=== PATIENT | female | born 1980 | race Caucasian/White ===

== ENCOUNTER 2017-09-18 10:15 | Inpatient (IN) | payer BC ==
[~2017-09-18] VITALS: Ht 157.5 cm; Wt 58.1 kg
[~2017-09-18 10:15] MED LIST: MULT1TAB73 PO
--- NOTE | 2017-09-18 10:15 | NUR ---
PT PRESENTED TO THE ER WITH A C/O ANXIETY, SHAKING WHILE AT [employer]. PT STATED THAT SHE DRANK COFFEE PRIOR TO WORKING OUT THIS AM. PT APPEARS TO BE DIZZY AND WEAK. PT IS ON THE MONITOR AND CONTINOUS PULSE OX.
--- NOTE | 2017-09-18 10:20 | NUR ---
PT STATED THAT SHE HAD A BABY APPROX 7 WEEKS AGO.
[2017-09-18] MEDS ORDERED: ACETAMINOPHEN ES 500 MG TABLET ONE (10:27)
[2017-09-18] MEDS ORDERED: ACETAMINOPHEN ES 500 MG TABLET PO ONE (10:30)
[2017-09-18 10:46] LABS: BASOPHILS % (AUTO) 0.6 % (0.0-2.0); EOSINOPHILS # (AUTO) 0.2 /CMM (0.0-0.7); EOSINOPHILS % (AUTO) 2.5 % (0.0-6.0); HEMATOCRIT 40 % (33-45); HEMOGLOBIN 12.9 g/dL (11.5-14.8); LYMPHOCYTES # (AUTO) 1.4 /CMM (0.8-4.8); LYMPHOCYTES % (AUTO) 20.6 % (20.0-44.0); MEAN CORPUSCULAR HEMOGLOBIN 26 PG (26.0-33.0); MEAN CORPUSCULAR HGB CONC 33 g/dl (31.0-36.0); MEAN CORPUSCULAR VOLUME 81 fL (82-100); MONOCYTES # (AUTO) 0.7 /CMM (0.1-1.30); MONOCYTES % (AUTO) 10.1 % (2.0-12.0); NEUTROPHILS # (AUTO) 4.6 /CMM (1.8-8.9); NEUTROPHILS % (AUTO) 66.2 % (43.0-81.0); PLATELET COUNT (AUTO) 334 /CMM (150-450); RDW COEFFICIENT OF VARIATION 13.3 (11.5-15.0); RED BLOOD CELL COUNT(AUTO) 4.92 MIL/uL (4.0-5.2); WHITE BLOOD COUNT (AUTO) 6.9 K/uL (4.3-11.0)
--- NOTE | 2017-09-18 10:49 | NUR ---
PT AMBULATED TO THE BATHROOM WITH ASSISTANCE. PT APPEARS WEAK AND DIZZY WHILE AMBULATING.
--- NOTE | 2017-09-18 10:51 | NUR ---
PT RETURNED TO BED #1. PT STATED THAT SHE FEEL THIRSTY, WEAK, AND DIZZY. PT WAS RECONNECTED TO THE MONITOR AND CONTINUOUS PULSE OX.
--- NOTE | 2017-09-18 10:52 | NUR ---
XRAY IN PROGRESS AT THE BEDSIDE.
--- NOTE | 2017-09-18 10:53 | NUR ---
PT REC'D A SM CUP OF WATER.
[2017-09-18 10:56] LABS: CALCIUM, SERUM 9.6 mg/dL (8.5-10.1); CARBON DIOXIDE 22 mmol/L (21-32); CHLORIDE 104 mmol/L (98-107); CREATININE 1.1 mg/dL (0.6-1.3); GLUCOSE 75 mg/dL (74-106); POTASSIUM 3.2 mmol/L (3.5-5.1); SODIUM SERUM 139 mmol/L (136-145); UREA NITROGEN, BLOOD 9 mg/dL (7-18)
[2017-09-18 10:59] LABS: PROTHROMBIN TIME 10.4 SECS (9.5-12.7)
[2017-09-18 11:02] LABS: ALANINE AMINOTRANSFERASE 21 U/L (12-78); ALBUMIN 4.6 g/dL (3.4-5.0); ALKALINE PHOSPHATASE 92 U/L (46-116); ASPARTATE AMINOTRANSFERASE 22 U/L (15-37); BILIRUBIN,DIRECT 0.1 mg/dL (0.0-0.2); TOTAL PROTEIN, SERUM 8.2 g/dL (6.4-8.2)
[2017-09-18 11:04] LABS: TROPONIN I < 0.017 ng/mL (0.00-0.056)
[2017-09-18] MEDS ORDERED: LORAZEPAM 1 MG TABLET ONE (11:07)
[2017-09-18 11:14] LABS: APPEARANCE,URINE Cloudy (CLEAR); BILIRUBIN,URINE Negative (NEGATIVE); BLOOD, URINE Negative Ery/uL (NEGATIVE); COLOR,URINE Yellow (YELLOW); KETONES,URINE 40 (NEGATIVE); LEUKOCYTE ESTERASE ,URINE Trace (NEGATIVE); NITRITE, URINE Negative (NEGATIVE); PH,URINE 6.5 (5.0-8.0); PROTEIN,URINE 100 mg/dl (NEGATIVE); UGLUCOSE Negative (NEGATIVE); UROBILINOGEN,URINE 0.2 EU/dL (0.2)
[2017-09-18] MEDS ORDERED: CEFTRIAXONE 1GM BAG (ER ONLY) 50 ML IV ONE ×2 (11:24→11:30)
--- NOTE | 2017-09-18 11:28 | NUR ---
DR.RUTHERFORD RUELAS FOR ADMISSION
--- NOTE | 2017-09-18 11:28 | NUR ---
CALLED NURSING SUP. FOR TELE BED
[2017-09-18 11:30] LABS: BACTERIA,URINE 2+ /HPF (None Seen); RBC,URINE NONE SEEN /HPF (0-2); SQUAMOUS EPITHELIAL CELL,UR Many /HPF (None Seen); YEAST,URINE None Seen /HPF (None Seen)
[2017-09-18] MEDS ORDERED: IV NS 0.9% 1,000 ML BAG IV ONE (11:30)
[2017-09-18] MEDS ORDERED: LORAZEPAM 0.5 MG TABLET PO ONE (11:30)
[2017-09-18 11:31] LABS: HYALINE CASTS, URINE Many /LPF (None Seen)
--- NOTE | 2017-09-18 11:33 | NUR ---
DR. ALVAREZ IS AT THE BEDSIDE SPEAKING TO THE PT RE: TEST RESULTS AND POC.
[2017-09-18] MEDS ORDERED: OMEG1CAP PO (11:34)
--- NOTE | 2017-09-18 11:46 | NUR ---
CALLING REPORT TO TELE NURSE.
[2017-09-18] MEDS ORDERED: Z GUARD REMEDY 2 OZ OINT TP PRN (12:00)
[2017-09-18] MEDS ORDERED: MAG HYDROX/AL HYDROX/SIMETH 30 ML UDC PO PRN (12:00)
[2017-09-18] MEDS ORDERED: CEFTRIAXONE 1 G in IV D5W 50 ML IV SCH (12:00)
[2017-09-18] MEDS ORDERED: MAGNESIUM HYDROXIDE 30 ML UDC PO PRN (12:00)
[2017-09-18] MEDS ORDERED: ONDANSETRON HCL/PF 4 MG/2 ML VIAL IVP PRN (12:00)
[2017-09-18] MEDS ORDERED: HYDROCODONE/APAP 5/325MG 1 EACH TABLET PO PRN (12:00)
[2017-09-18] MEDS ORDERED: ACETAMINOPHEN 325 MG TABLET PO PRN (12:00)
--- NOTE | 2017-09-18 12:08 | NUR ---
CALLING REPORT TO KRISTA JOHNSON.
--- NOTE | 2017-09-18 12:21 | NUR ---
ENDORSED SEPSIS RE-ASSESSMENT TO TELE NURSE.
--- NOTE | 2017-09-18 12:25 | NUR ---
CONTRACT ADMINISTRATOR NOTES PATIENT RECEIVED FROM E.R. DEPARTMENT, UNDER THE CARE OF DR. UPTON, RECEIVED ADMISSION ORDERS, ORDERS NOTED AND CARRIED OUT. PATIENT ALERT AND ORIENTED X4, DENIES PAIN OR DISCOMFORT AT THIS TIME, NO S/SX OF RESPIRATORY DISTRESS NOTED. PIV PATENT AND INTACT, IVF INFUSING AND TOLERATING WELL, SKIN ASSESSMENT COMPLETED, SKIN DRY AND INTACT, NEEDS ATTENDED AND MET, CALL LIGHT WITHIN REACH, SAFETY MEASURES IN PLACED, WILL CONTINUE TO MONITOR.
[2017-09-18] MEDS: IV NS 0.9% 1,000 ML IV SCH ×2 (13:55→22:00)
[2017-09-18 14:00] VITALS: BP 109/66
[2017-09-18 16:00] VITALS: BP 104/58
[2017-09-18] MEDS ORDERED: POTASSIUM CHLORIDE 20 MEQ TAB.PRT.SR PO ONE (17:30)
--- NOTE | 2017-09-18 19:25 | NUR ---
MS/RN NOTES RECEIVED PT. SITTING UP AWAKE, ALERT AND ORIENTED X4. BREATHING EVEN AND UNLABORED ON ROOM AIR. NO SOB, RESPIRATORY DISTRESS OR COMPLAINTS OF PAIN NOTED AT THIS TIME. PT. WITH LEFT AC 18 GAUGE PERIPHERAL IV PRESENT, PATENT AND INTACT ADMINISTERING TO PT. NS @ 100ML/HR. BED LOCKED AND IN LOWEST POSITION, SIDE RAILS UP X2, CALL LIGHT WITHIN REACH, WILL CONTINUE TO MONITOR.
--- NOTE | 2017-09-18 19:40 | NUR ---
RN MS NOTES PATIENT ALERT AND ORIENTED X4, NO DISTRESS NOTED, DENIES PAIN OR DISCOMFORT AT THIS TIME, DR. UPTON AWARE OF LAB RESULTS, POTASSIUM REPLACED, SKIN ASSESSMENT COMPLETED, SKIN DRY AND INTACT, CONTINUE ON IVF, ALL NEEDS ATTENDED AND MET, CALL LIGHT WITHIN REACH, ENDORSED TO DIRECTOR OF ATHLETICS FOR HEIDI.
[2017-09-18 20:00] VITALS: BP 109/76
[2017-09-18] MEDS ORDERED: ZOLPIDEM TARTRATE 5 MG TABLET PO PRN (22:00)
[2017-09-19 06:23] LABS: BASOPHILS # (AUTO) 0.1 /CMM (0.0-0.2); BASOPHILS % (AUTO) 1.4 % (0.0-2.0); EOSINOPHILS # (AUTO) 0.2 /CMM (0.0-0.7); HEMATOCRIT 33 % (33-45); LYMPHOCYTES # (AUTO) 1.4 /CMM (0.8-4.8); LYMPHOCYTES % (AUTO) 28.9 % (20.0-44.0); MEAN CORPUSCULAR HEMOGLOBIN 27 PG (26.0-33.0); MEAN CORPUSCULAR HGB CONC 33 g/dl (31.0-36.0); MEAN CORPUSCULAR VOLUME 82 fL (82-100); MONOCYTES # (AUTO) 0.6 /CMM (0.1-1.30); MONOCYTES % (AUTO) 12.7 % (2.0-12.0); NEUTROPHILS # (AUTO) 2.6 /CMM (1.8-8.9); PLATELET COUNT (AUTO) 242 /CMM (150-450); RDW COEFFICIENT OF VARIATION 14.5 (11.5-15.0); RED BLOOD CELL COUNT(AUTO) 4.03 MIL/uL (4.0-5.2); WHITE BLOOD COUNT (AUTO) 4.9 K/uL (4.3-11.0)
[2017-09-19 06:37] LABS: CREATININE 0.7 mg/dL (0.6-1.3); MAGNESIUM 1.8 mg/dL (1.8-2.4); PHOSPHORUS 3.7 mg/dL (2.5-4.9); POTASSIUM 4.2 mmol/L (3.5-5.1)
--- NOTE | 2017-09-19 06:45 | NUR ---
MS/RN NOTES PT. IS LYING IN BED. AWAKE, ALERT AND ORIENTED X4. BREATHING EVEN AND UNLABORED ON ROOM AIR. NO SOB, RESPIRATORY DISTRESS OR COMPLAINTS OF PAIN NOTED AT THIS TIME. PT. WITH LEFT AC 18 GAUGE PERIPHERAL IV PRESENT, PATENT AND INTACT ADMINISTERING TO PT. NS @ 100ML/HR. ALL PT. NEEDS MET. BED LOCKED AND IN LOWEST POSITION, SIDE RAILS UP X2, CALL LIGHT WITHIN REACH, WILL ENDORSE TO DAYSHIFT NURSE FOR CONTINUITY OF CARE.
--- NOTE | 2017-09-19 07:00 | NUR ---
RN NOTES: PATIENT RESTING IN BED. PATIENT ALERT ORIENTED X4. NONLBAORED BREATHING NOTED ON ROOM AIR. PATIENT DENIES PAIN AT THE MOMENT. IV SITE PATENT AND INTACT. BED IN LOWEST LOCKED POSITION. CALL LIGHT WITHIN REACH. WILL CONTINUE TO MONTIOR
[2017-09-19 08:00] VITALS: BP 103/68
[2017-09-19] MEDS: IV NS 0.9% 1,000 ML IV SCH (08:42)
[2017-09-19] MEDS ORDERED: MULTIVITAMINS,THERAGRAN 1 UDTAB TABLET PO SCH (09:00)
[2017-09-19] MEDS ORDERED: Medication Not On Formulary EA (Omega-3 Fatty Acids/Fish Oil (Fish Oil 1,000 Mg Capsule) PO SCH (09:00)
--- NOTE | 2017-09-19 10:37 | NUR ---
RN NOTES: PATIENT DISCHARGED HOME PER MD ORDERS. PATIENT STABLE. VS WNL. NONLABORED BREATHING ON ROOM AIR. IV LINE REMOVED. PATIENT GIVEN EXISTCARE INSTRUCTIONS. PATIENT EDUCATED ON CONTINUING MEDICATIONS. PATIENT REFUSED TO WAIT FOR DOCTOR DISCHARGE SUMMARY. VALUABLES GIVEN TO PATIENT INCLUDING CELLPHONE. PATIENT STATED THAT SHE WILL LEAVE VIA UBER. BENEFITS AND RISKS EXPLAINED. PATIENT ALERT ORIENTED X4. AMBULATORY
[2017-09-19] MEDS ORDERED: CEFTRIAXONE 1 G in IV D5W 50 ML IV SCH (11:00)
== END 2017-09-19 10:37 | disposition home or self-care (01) | DRG 872 ==
LOC: ER 10:19 → TELE 11:58 → MED 12:32
PROVIDERS: ADMIT Internal Medicine; ATTEND Internal Medicine
DX: A41.9 Sepsis, unspecified organism (principal); E87.2 Acidosis; N39.0 Urinary tract infection, site not specified; E87.6 Hypokalemia; M43.6 Torticollis; Z98.82 Breast implant status
CPT/HCPCS: 36415; 71010-TC; 80048-TC; 80076-TC; 81000-TC; 83605-TC; 83735-TC; 84100-TC; 84484-TC; 85025-TC; 85730-TC; 87040-TC; 87081-TC; 87086-TC; J0696; J7030; J7060